=== PATIENT | female | born 1970 | race Caucasian/White ===

== ENCOUNTER 2025-01-04 08:33 | Emergency (ER) | payer SELFPAY ==
[~2025-01-04] VITALS: Ht 162.6 cm; Wt 68.0 kg
[2025-01-04 08:36] VITALS: O2SAT 98
[2025-01-04] MEDS: ACETAMINOPHEN 325MG TABLET PO ONE (09:41)
[2025-01-04 11:00] VITALS: BP 140/75; PULSE 75; RESP 19; TEMP 36.7; O2SAT 98
== END 2025-01-04 11:18 | disposition home or self-care (01) ==
LOC: ER 08:49
DX: M25.572 Pain in left ankle and joints of left foot (principal); R51.9 Headache, unspecified; M25.552 Pain in left hip; W10.9XXA Fall (on) (from) unspecified stairs and steps, initial encounter; Y93.89 Activity, other specified; Y92.89 Other specified places as the place of occurrence of the external cause; Y99.8 Other external cause status
CPT/HCPCS: 72170; 73610; 99284